=== PATIENT | male | born 1950 | race Hispanic/Latino ===

== ENCOUNTER → 2022-01-09 | Outpatient (CLI) | payer OTHER ==
[~2022-01-09] MED LIST: ACET-66 PO; ASPI-1197 PO; CALCIUM+D3 PO; CARV25TA PO; FISH OIL PO; LISI20TA24 PO; MELO-108 PO; NITR0.4T50 SL; OMEP20CA12 PO; PROP10DR2; SIMV40TA59 PO; SPIR25TA6 PO
[2022-01-09 12:39] LABS: CREATININE 0.8 mg/dL (0.5-1.5); POTASSIUM 4.6 mmol/L (3.5-5.1)
== END | disposition home or self-care (01) ==
LOC: LAB 08:12
PROVIDERS: ATTEND Internal Medicine Cardiovascular Disease
DX: I10 Essential (primary) hypertension (principal)
CPT/HCPCS: 36415; 80048

== ENCOUNTER → 2023-02-02 | Outpatient (CLI) | payer OTHER ==
[~2023-02-02] MED LIST changes: +REGADENOSON 0.4 MG/5 ML PF SYG IVP ONE
== END | disposition home or self-care (01) ==
LOC: SHCH 08:51
PROVIDERS: ATTEND Internal Medicine Cardiovascular Disease
DX: Z01.810 Encounter for preprocedural cardiovascular examination (principal); I25.10 Atherosclerotic heart disease of native coronary artery without angina pectoris; M25.562 Pain in left knee; R94.39 Abnormal result of other cardiovascular function study; I11.0 Hypertensive heart disease with heart failure; I50.22 Chronic systolic (congestive) heart failure; I25.5 Ischemic cardiomyopathy; R60.0 Localized edema; Z95.5 Presence of coronary angioplasty implant and graft; Z95.1 Presence of aortocoronary bypass graft; Z79.82 Long term (current) use of aspirin; Z79.899 Other long term (current) drug therapy
CPT/HCPCS: 78452; 96374; 93017; J2785; A9500 ×2